=== PATIENT | male | born 1960 | race African-American/Black ===

== ENCOUNTER 2024-12-14 12:36 | Outpatient (CLI) | payer OTHER ==
[~2024-12-14 12:36] MED LIST: Iopamidol 300 61% 100 ML VIAL FS ONE
== END 2024-12-14 12:37 | disposition home or self-care (01) ==
LOC: CSHCT 12:36
PROVIDERS: ATTEND Internal Medicine
DX: C67.1 Malignant neoplasm of dome of bladder (principal); D50.8 Other iron deficiency anemias; R21 Rash and other nonspecific skin eruption; R91.8 Other nonspecific abnormal finding of lung field
CPT/HCPCS: 71260; 74177; Q9967